=== PATIENT | female | born 1965 | race Caucasian/White ===

== ENCOUNTER 2021-03-20 05:03 | Day surgery (SDC) | payer OTHER ==
[2021-03-18 09:55] VITALS: BMI 37.0
[2021-03-20] MEDS ORDERED: KETAMINE HCL 500 MG/10 ML VIAL ONE (10:57)
[2021-03-20 11:43] VITALS: TEMP 98
[2021-03-20 12:46] VITALS: BP 130/68; PULSE 74
== END 2021-03-20 12:46 | disposition home or self-care (01) ==
LOC: JASU-ENDO 05:03
PROVIDERS: ATTEND Internal Medicine Gastroenterology
PROC: 0DB68ZX Excision of Stomach, Via Natural or Artificial Opening Endoscopic, Diagnostic (ICD-10-PCS; 2021-03-20)
PROC: 0DB98ZX Excision of Duodenum, Via Natural or Artificial Opening Endoscopic, Diagnostic (ICD-10-PCS; principal; 2021-03-20 12:00)
DX: K21.00 Gastro-esophageal reflux disease with esophagitis, without bleeding (principal); K31.7 Polyp of stomach and duodenum; K29.40 Chronic atrophic gastritis without bleeding; K29.80 Duodenitis without bleeding; E11.9 Type 2 diabetes mellitus without complications; I10 Essential (primary) hypertension
CPT/HCPCS: 88305-TC; 88342-TC

== ENCOUNTER 2021-04-06 04:38 | Day surgery (SDC) | payer OTHER ==
[2021-04-06 06:41] VITALS: BMI 35.8
[2021-04-06] MEDS ORDERED: PROPOFOL 20 ML ONE (07:38)
[2021-04-06] MEDS ORDERED: ROCURONIUM BROMIDE 50 MG/5 ML SYRINGE ONE (07:38)
[2021-04-06] MEDS ORDERED: MIDAZOLAM HCL 2 MG/2 ML SINGLE DOSE VIAL ONE (07:39)
[2021-04-06] MEDS ORDERED: ceFAZolin SODIUM 1 GM VIAL ONE (07:59)
[2021-04-06] MEDS ORDERED: KETOROLAC TROMETHAMINE 30 MG/1 ML VIAL ONE (07:59)
[2021-04-06] MEDS ORDERED: DEXAMETHASONE SOD PHOSPHATE 4 MG/1 ML VIAL ONE (07:59)
[2021-04-06] MEDS ORDERED: ceFAZolin SODIUM 1 GM VIAL IVPB ONE (08:05)
[2021-04-06] MEDS ORDERED: ACETAMINOPHEN INJECTION 100 ML IVPB ONE (08:19)
[2021-04-06] MEDS ORDERED: SEVOFLURANE 250 ML BTL ONE (08:19)
[2021-04-06] MEDS ORDERED: BUPIVACAINE HCL/PF 0.5% (5MG/ML) 10 ML VIAL IJ ONE (08:45)
[2021-04-06] MEDS ORDERED: NEOSTIGMINE METHYLSULFATE 0.5 MG/ML - 10 ML MDV ONE (08:46)
[2021-04-06] MEDS ORDERED: oxyCODONE HCL 5 MG TABLET PO PRN (09:09)
[2021-04-06] MEDS ORDERED: ONDANSETRON 4 MG/2 ML VIAL IVPUSH PRN (09:09)
[2021-04-06] MEDS ORDERED: LACTATED RINGERS SOLUTION 1,000 ML IV SCH (09:15)
[2021-04-06] MEDS ORDERED: ONDANSETRON 4 MG/2 ML VIAL ONE (09:39)
[2021-04-06] MEDS ORDERED: oxyCODONE HCL 5 MG TABLET ONE (12:51)
[2021-04-06 15:50] VITALS: BP 138/76; PULSE 63; TEMP 97.3
== END 2021-04-06 15:50 | disposition home or self-care (01) ==
LOC: JASU-SURG 04:38
PROVIDERS: ATTEND Obstetrics & Gynecology
PROC: 0UT64ZZ Resection of Left Fallopian Tube, Percutaneous Endoscopic Approach (ICD-10-PCS; 2021-04-06)
PROC: 0UT14ZZ Resection of Left Ovary, Percutaneous Endoscopic Approach (ICD-10-PCS; principal; 2021-04-06 07:30)
DX: D27.1 Benign neoplasm of left ovary (principal); E11.9 Type 2 diabetes mellitus without complications; Z79.84 Long term (current) use of oral hypoglycemic drugs
CPT/HCPCS: 36415; 81025; 82962; 84703; 86850; 86900; 86901; 94760; J0131